=== PATIENT | female | born 2000 | race Caucasian/White ===

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

== ENCOUNTER 2020-07-01 19:25 | Emergency (ER) | payer OTHER | END 2020-07-01 22:31 | disposition home or self-care (01) | LOC: ERS 19:25 | DX: O99.891 Other specified diseases and conditions complicating pregnancy (principal); M62.830 Muscle spasm of back; Z87.891 Personal history of nicotine dependence | CPT/HCPCS: 99282 ==

== ENCOUNTER 2020-07-27 18:53 | Day surgery (SDC) | payer OTHER ==
[2020-07-27 19:35] VITALS: BMI 37.2
[2020-07-27] MEDS ORDERED: hydrALAZINE 20 MG/ML VIAL SLOW IVP PRN (19:59)
--- NOTE | 2020-07-27 20:53 | PDOC.FPROB ---
FMR OB H&P: HPI - History of Present Illness Chief Complaint: leakage of fluid Indentification: 19yo at 33.2wga History of Present Illness: Leakage of fluid began at 1000 this am. She describes the fluid as thin and clear. She had unprotected sex on 07/26 at 2200. She denies other vaginal discharge, vaginal bleeding, ctxns. Endorses good FM. She endorses a hx of recurrent UTIs, accompanied by yeast infxn and BV. She was last treated for these on 07/19/2020. Her previous delivery was a at 41wga. Has full-body rash that started at 26wga. She has been worked up for it but has not been diagnosed with anything. She has been prescribed topical steroids and hydroxyzine which she states aren't working. She has never had chicken pox before. Primary Care Physician: TRINA Chapman FMR OB H&P: Current - Care : 2 Para: 1 Gestational age: 33 Due date: 09/12/2020 Course/Complications: Fe def anemia. Full-body rash - OB Labs Blood type: A RH: positive Rubella: immune 1 hour gtt: 2hr GTT neg FMR OB H&P: History - Past Medical History PMH: ADHD, has not taken meds in - OB History OB History: 1st child in 2018 via at 41wga. No complications. 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 Last dx and tx for them on 07/19/2020. - Surgical History Sx History: Denies - Social History Social History: Denies TAD. FOB involved and in the room. FMR OB H&P: Medications - Current Home Medications: Medication Instructions Recorded Confirmed Type Ferrous Sulfate [Feosol] 325 mg PO BID-WM #60 tab 03/13/18 Rx Vits96/Iron Fum/Folic 1 each PO 07/27/20 History [ Tablet] Allergies/Adverse Reactions: Allergies Allergy/AdvReac Type Severity Reaction Status Date / Time No Known Drug Allergies Allergy Verified 07/27/20 19:36 FMR OB H&P: ROS - Review of Systems General: denies: fever/chills Eyes: denies: vision changes, double vision, scotomas, floaters ENT: denies: nasal congestion, sore throat Cardiovascular: denies: chest pain, palpitation, edema Respiratory: denies: cough, congestion, shortness of breath Gastrointestinal: reports: cramping ([place]). denies: abdominal pain, nausea, vomiting, diarrhea Genitourinary (Female): reports: vaginal discharge. denies: dysuria, vaginal bleeding, contractions Neurologic: denies: headache Integumentary: reports: itching, rash Endocrine: reports: polyuria FMR OB H&P: Vital Signs - Maternal Vital signs: BP 126/77, HR 95, RR 18 - Heart Tones Baseline: 120 Variability: moderate Acceleration: absent [place] contractions every: N/A FMR OB H&P: Physical Exam - Physical Exam General: NAD, awake, alert and oriented HEENT: normocephalic and atraumatic, EOMI, grossly normal vision, grossly normal hearing Neck: supple, FROM, trachea midline Chest: non-tender to palpation, no lesions Heart: RRR, normal S1/S2, no murmurs/rubs/gallops General: CTAB, no respiratory distress, good air movement Abdomen: soft, gravid, non-tender, bowel sound present Musculoskeletal: FROM in all four extremities Neurological: no focal deficit Deviation from normal: Diffuse papular rash in various stages of healing. Excoriated and bleeding Lymphatic: no unusual bruising or bleeding Psychiatric: intact recent and remote memory, good judgement and insight, normal mood and affect - Pelvic Exam Vulva: no masses, no lesions Cervix: no lesions, no blood Deviation from normal: White, thin discharge FMR OB H&P: A/P Disposition: This is a 19yo at 33.2wga who presented for persistent leakage of fluid over 12hrs. Possible ROM - Ddx: ROM vs leukorrhea of (suspected) vs retained semen vs vaginitis - No pooling seen on SVE - Amnisure obtained - No fibronectin given recent intercourse - White, thin discharge -> VP3 obtained - Consider U/S to measure NEHAL sIUP in the 3T - 33.2wga - Active FM. Reassuring FHT with baseline 120, good accels, mod chadd, no decels Fe anemia of - On Fe supplementation Discussion: Date/Time: 07/27/202052 This H&P was discussed with Dr. Gordon Maria who agrees with the above documentation and plan. Addendum - Attending - Attending Attestation Date/Time: 07/28/20 2181 I personally evaluated the patient and discussed the management with Dr. Becka Bennett last night. I agree with the History, Examination, Assessment and Plan documented above with any addition or exceptions noted below.
[2020-07-27 21:59] LABS: Amnisure Test No Membranes Rupture (No Rupture)
[2020-07-27 22:01] LABS: Amnisure Internal Control QC ACCEPTABLE (ACCEPTABLE)
--- NOTE | 2020-07-28 04:48 | PDOC.BPN ---
- Brief Progress Note Encounter Date: 07/27/20 Encounter Time: 22:00 Amnisure and VP3 negative. Suspect leukorrhea of . Will discharge home with return precautions.
== END 2020-07-27 22:25 | disposition home or self-care (01) ==
LOC: L&D/OP 18:53
PROVIDERS: ATTEND Family Medicine
DX: O99.891 Other specified diseases and conditions complicating pregnancy (principal); N89.8 Other specified noninflammatory disorders of vagina; O99.013 Anemia complicating pregnancy, third trimester; D50.9 Iron deficiency anemia, unspecified; O99.343 Other mental disorders complicating pregnancy, third trimester; F90.9 Attention-deficit hyperactivity disorder, unspecified type; Z3A.33 33 weeks gestation of pregnancy
CPT/HCPCS: 84112; 87480; 87510; 87660

== ENCOUNTER 2023-01-13 15:23 | Emergency (ER) | payer OTHER ==
[2023-01-13] MEDS ORDERED: Boostrix 0.5 ML (Tdap) VIAL (>/=7 yrs of age) ONE (16:15)
== END 2023-01-13 17:40 | disposition home or self-care (01) ==
LOC: ERS 15:23
DX: S51.811A Laceration without foreign body of right forearm, initial encounter (principal); Z87.891 Personal history of nicotine dependence; Z23 Encounter for immunization; W54.0XXA Bitten by dog, initial encounter
CPT/HCPCS: 12002; 90471; 90715